=== PATIENT | male | born 1995 | race Caucasian/White ===

== ENCOUNTER 2017-04-01 10:13 | Emergency (ER) | payer OTHER ==
[~2017-04-01] VITALS: Ht 188 cm; Wt 77.1 kg
[2017-04-01] MEDS ORDERED: PROAIR HFA8.5 GM PO (10:25)
[2017-04-01 10:55] LABS: URINE COLOR DARK YELLOW
[2017-04-01 10:56] LABS: URINE BILIRUBIN NEGATIVE (Negative); URINE BLOOD NEGATIVE (Negative); URINE CLARITY CLEAR; URINE GLUCOSE-RANDOM NEGATIVE (Negative); URINE KETONES NEGATIVE (Negative); URINE LEUKOCYTES-REFLEX NEGATIVE (Negative); URINE NITRITE-REFLEX NEGATIVE (Negative); URINE PROTEIN TRACE (Negative); URINE SPECIFIC GRAVITY 1.015 (1.005-1.030); URINE UROBILINOGEN 0.2 E.U./dl (0.2-1.0)
[2017-04-01 11:19] VITALS: BP 144/93
== END 2017-04-01 11:20 | disposition home or self-care (01) ==
LOC: M.ERS 10:13
PROVIDERS: Nurse Practitioner
DX: A64 Unspecified sexually transmitted disease (principal); J45.909 Unspecified asthma, uncomplicated

== ENCOUNTER 2017-05-23 00:15 | Emergency (ER) | payer OTHER ==
[~2017-05-23] VITALS: Ht 190.5 cm; Wt 83.0 kg
[~2017-05-23 00:15] MED LIST: PROAIR HFA8.5 GM PO
[2017-05-23 01:30] VITALS: BP 147/56
--- NOTE | 2017-05-23 13:07 | EKG ---
[place] [address] ELECTROCARDIOGRAM REPORT Name: ALICIACLAU Benavidez II Room: [facility]#: [id number] Admission: 05/23/17 Attend Phys: Discharge: Date of : [birth year] Report #: [id number] THIS REPORT FOR: //name// [facility] ED Test Date: 2017-05-23 Test Time: 00:20:22 Pat Name: CLAU VARGAS Department: Room: Gender: Welder Assistant: JO Mae : 1995 Requested By: Cherelle Biggs Order Number: [id number] Reading MD: Flaco Tapia Measurements Intervals [place] Rate: 109 P: 75 SC: 135 QRS: 77 QRSD: 98 T: 51 QT: 317 QTc: 427 Interpretive Statements Sinus tachycardia ST elev, probable normal early repol pattern No previous ECG available for comparison Electronically Signed On 05-23-2017 13:07:27 CDT by Flaco Tapia [email or web address] <ELECTRONICALLY SIGNED> By: Nasima Tapia MD, [facility] 05/23/17 1307 0020 0020 Nasima Tapia MD, FACC /EPI
== END 2017-05-23 01:31 | disposition home or self-care (01) ==
LOC: M.ERS 00:15
DX: F15.10 Other stimulant abuse, uncomplicated (principal); J45.909 Unspecified asthma, uncomplicated; Z88.0 Allergy status to penicillin